=== PATIENT | male | born 1950 | race Caucasian/White ===

== ENCOUNTER 2018-06-23 14:19 | Emergency (ER) | payer MEDICARE, OTHER ==
[~2018-06-23] VITALS: Ht 182.9 cm; Wt 81.6 kg
[2018-06-23] MEDS ORDERED: OXYMETAZOLINE NASAL 0.05% 15 ML SPRAY NS ONE (14:49)
[2018-06-23] MEDS: OXYMETAZOLINE NASAL 0.05% 15 ML SPRAY NS ONE (14:52)
[2018-06-23] MEDS ORDERED: SILVER NITRATE APPLICATOR STICK EACH TP ONE ×3 (15:26→16:08)
[2018-06-23] MEDS: SILVER NITRATE APPLICATOR STICK EACH TP ONE (16:00)
--- NOTE | 2018-06-23 16:10 | NUR ---
PT NOSE BLEED STOPPED IN BOTH NOSTRILS. Patient discharged to home in stable conditon. Written and verbal after care instructions given. Patient verbalizes understanding of instructions.PT WALKS IN STEADY GAIT. PT DENEIS HEADACHE OR DIZZINESS. PT WITH DAUGHTER.
--- NOTE | 2018-06-23 16:30 | NUR ---
pt d/c'd home, aci/rx x1 given. pt ambulated w/o diff/took all belongings.
[2018-06-23 16:39] VITALS: BP 132/81
== END 2018-06-23 16:10 | disposition home or self-care (01) ==
LOC: ER 14:19
DX: S61.412A Laceration without foreign body of left hand, initial encounter (principal); S61.511A Laceration without foreign body of right wrist, initial encounter; S41.152A Open bite of left upper arm, initial encounter; R04.0 Epistaxis; W54.0XXA Bitten by dog, initial encounter; Y93.89 Activity, other specified; Y92.89 Other specified places as the place of occurrence of the external cause; Y99.8 Other external cause status
CPT/HCPCS: A4663

== ENCOUNTER 2018-11-05 10:46 | Emergency (ER) | payer MEDICARE ==
[~2018-11-05] VITALS: Ht 182.9 cm; Wt 81.6 kg
[2018-11-05] MEDS ORDERED: EPINEPHRINE-PF 1:1000 1 MG/ML AMPUL IV ONE ×3 (11:00→11:45)
[2018-11-05] MEDS ORDERED: EPINEPHRINE 1 MG/1 ML AMP ONE ×2 (11:04→11:43)
--- NOTE | 2018-11-05 11:54 | NUR ---
pt was evaluated by dr Pereira. pt was d/c'd to home. d/c instructions given to the pt. no nosebleeding at thistime.
[2018-11-05 11:57] VITALS: BP 139/78
== END 2018-11-05 11:59 | disposition home or self-care (01) ==
LOC: ER 10:46
DX: R04.0 Epistaxis (principal)
CPT/HCPCS: 30901; 99284; J0171 ×3; A4663